=== PATIENT | female | born 1990 | race Caucasian/White ===

== ENCOUNTER 2017-02-12 10:32 | Emergency (ER) | payer BC ==
[2017-02-12 10:33] VITALS: BMI 23.3
[2017-02-12 10:59] VITALS: O2SAT 98
--- NOTE | 2017-02-12 11:02 | ED PDOC ---
HPI: General Adult Time Seen by Provider: 02/12/17 10:55 Chief Complaint (Nursing): Abdominal Pain Chief Complaint (Provider): transfer accepted by Dr. Koenig History Per: Patient, Other ([facility] chart) History/Exam Limitations: no limitations Additional Complaint(s): Patient was transferred here from [facility] to be accepted by Dr. Koenig motorcycle assembler. Working diagnosis is adnexal mass, ovarian cyst vs other gynecological pathology. CT and US were done previously. Labs, CT, US were reviewed by proposal manager writer. Dr. Koenig was paged. Patient was initially seen at [place] for abdominal pain, vomit, diarrhea. Also reports menstrual cycle for several days. Past Medical History Reviewed: Historical Data, Nursing Documentation, Vital Signs Vital Signs: Last Vital Signs Temp 98.4 F 02/12/17 13:40 Pulse 87 02/12/17 13:40 Resp 19 02/12/17 13:40 BP 102/62 02/12/17 13:40 Pulse Ox 98 02/12/17 13:40 - Family History Family History: States: No Known Family Hx - Home Medications Home Medications: Ambulatory Orders Medication Instructions Recorded Dicyclomine [Bentyl] 10 mg PO TID #15 cap 02/12/17 Ondansetron ODT [Zofran ODT] 4 mg PO Q8 PRN #12 odt 02/12/17 Sulfamethoxazole/Trimethoprim 1 tab PO BID #14 tab 02/12/17 [Bactrim DS 800 mg-160 mg] traMADol [Ultram] 50 mg PO Q6 PRN #6 tab 02/12/17 - Allergies Allergies/Adverse Reactions: Allergies Allergy/AdvReac Type Severity Reaction Status Date / Time No Known Allergies Allergy Verified 02/12/17 03:09 Review of Systems ROS Statement: Except As Marked, All Systems Reviewed And Found Negative Physical Exam - Reviewed Nursing Documentation Reviewed: Yes Vital Signs Reviewed: Yes - Physical Exam Appears: Positive for: Well, Non-toxic, No Acute Distress Head Exam: Positive for: ATRAUMATIC, NORMAL INSPECTION, NORMOCEPHALIC Skin: Positive for: Warm, Dry Cardiovascular/Chest: Positive for: Regular Rate, Rhythm. Negative for: Tachycardia Respiratory: Positive for: Normal Breath Sounds. Negative for: Wheezing, Respiratory Distress Gastrointestinal/Abdominal: Positive for: Soft, Tenderness (lower abdominal). Negative for: Guarding, Rebound Extremity: Positive for: Normal ROM Neurologic/Psych: Positive for: Alert, Oriented (x3) - ECG O2 Sat by Pulse Oximetry: 98 (RA) Pulse Ox Interpretation: Normal Medical Decision Making Medical Decision Making: From [place] Chart: 02/12/17 08:31 Patient with sono and CT results as noted - discussed with on-call physician, Dr. Medeiros, who said to discuss with MACHINE FEEDER RAW STOCK. Case discussed with Dr. Koenig, who said she will accept the patient for transfer to [place] [facility]. Patient signed consent for transfer. Dr. Watkins in the ED aware From [place] Chart: prelimininary CT abd/pel w/ Impression: There is a complex 54 x 45 mm cystic mass in the left adnexa adjacent to the dorsal margins of the right ovary. Right ovary appears polycystic. There is moderate adjacent stranding and small fluid. There is thickening of the wall of the adjacent sigmoid colon and small bowel. Uncertain if this is exophytic ovarian cyst or distinct from the ovary. Cannot exclude abscess or cystic malignancy. Correlate with status. Previously described 26 mm left ovarian cyst is suspected in series 2 image 138. From [place] Chart: preliminary US Pelvis Impression: Ovarian lesions as above. If clinically indicated, consider 6 week interval followup imaging to document resolution. [address] Koenig MARKETING PROJECT COORDINATOR who will see the patient in the ED. Patient does not ask for pain medications at this time. CT abd/pel Impression (final read by Dr. Mak Radiology): Cyst left adnexa. Otherwise no significant/ acute findings. US Pelvis impression (final read by Dr. Mak Radiology): Bilateral adnexal cysts, of complex cyst right ovary, simple cyst left ovary. Negative study for adnexal torsion. 1124 Case discussed with patient. Explained I reviewed CT and US from this morning, including preliminary and final reads. Explained finding of right polycystitic ovarian complex structure on final read. Explained finding of smaller cyst on left side. Explained CT is negative for acute findings including appendicitis. Explained that according to labs patient has UTI which is consistent with symptoms. Explained that patient was accepted by Dr. Koenig MARKETING PROJECT COORDINATOR given the preliminary findings. Explained I cannot give any more pain medications at this time. Patient is in agreement and is thankful for explanation because she was not aware. 1129: Dr. Koenig MARKETING PROJECT COORDINATOR is at bedside. [address] Koenig MARKETING PROJECT COORDINATOR who examined the patient and clears patient for discharge. 1300 MDM There is no evidence of acute emergent or any urgent surgical or gynecological condition at this time requiring admission or other consults. Patient is stable for discharge. 1300 I discussed with the patient the findings, consult, dx, and follow up. She agrees with the plan. All questions are answered. Patient and family are leaving in good spirits. Disposition - Clinical Impression Clinical Impression: Abdominal pain in female, Ovarian cyst, UTI (urinary tract infection), Vomiting and diarrhea - Patient ED Disposition Is Patient to be Admitted: No Doctor Will See Patient In The: Office Counseled Patient/Family Regarding: Studies Performed, Diagnosis, Need For Followup - Disposition Referrals: [facility] [Outside] [facility] [Outside] Disposition: Routine/Home Disposition Time: 13:22 Condition: GOOD Additional Instructions: Follow up with your plaster foreman in 2-3 days. Prescriptions: Sulfamethoxazole/Trimethoprim [Bactrim DS 800 mg-160 mg] 1 tab PO BID #14 tab Dicyclomine [Bentyl] 10 mg PO TID #15 cap traMADol [Ultram] 50 mg PO Q6 PRN #6 tab PRN Reason: Pain, Moderate (4-7) Ondansetron ODT [Zofran ODT] 4 mg PO Q8 PRN #12 odt PRN Reason: Nausea/Vomiting Instructions: Abdominal Pain (ED), Ovarian Cyst (ED), Urinary Tract Infection in Women (ED) Forms: [facility] ED School/Work Excuse Additional Comments - Additional Comments Additional Comments: Scribe Attestation: Documented by Leighton Rueda acting as a scribe for Dedra Sutton MD. Scribe Attestation: All medical record entries made by the Scribe were at my direction and personally dictated by me. I have reviewed the chart and agree that the record accurately reflects my personal performance of the history, physical exam, medical decision making, and the department course for this patient. I have also personally directed, reviewed, and agree with the discharge instructions and disposition.
[2017-02-12] MEDS ORDERED: cefTRIAXone (Rocephin) 1 gm Inj ONE (11:09)
[2017-02-12 13:42] VITALS: BP 102/62; PULSE 87; RESP 19; TEMP 98.4
--- NOTE | 2017-02-12 14:08 | CON ---
DATE: 02/12/2017 This is a 26-year-old virgin who was transferred from [place] due to abdominal pain with a last menstrual period of 02/08/2017. The patient reports that she bled until Thursday and then the bleeding stopped. Reports that she usually bleeds for 5 days and her periods are usually heavier than the recent one she had. She reports that she always has cramps and bloating as well as some diarrhea with her periods. She reports that she had diarrhea on Thursday morning , although she reports some diarrhea with her periods usually. The patient reports that she had bloating that started on Thursday, on 02/09, but it was all over her abdomen up to her sternum. She reports that she vomited on Thursday morning. The patient reports that she had some relief of her discomfort with the bowel movements, but then she would have pain again. She reports that she took Gas-X without any relief of the bloating. The patient reports that the abdominal pain is mostly in her upper abdomen. The patient denies any sick contacts. PAST MEDICAL HISTORY: Healthy. PAST SURGICAL HISTORY: None. MEDICATIONS: None. ALLERGIES: No known drug allergies. GYNECOLOGICAL HISTORY: The patient is a virgin. Menarche at 13 with regular periods. She denies any history of any STDs. The patient does not have a MANAGER OF IT. FAMILY HISTORY: Paternal grandmother with colon cancer and paternal aunt with breast cancer. SOCIAL HISTORY: The patient denies tobacco, alcohol, and illicit drug use. PHYSICAL EXAMINATION: VITAL SIGNS: Afebrile. Vital signs are stable. GENERAL: The patient appears comfortable, lying in bed. She does not appear in any acute distress. ABDOMEN: Soft and diffusely tender. There is voluntary guarding, but no involuntary guarding, no rebound. EXTREMITIES: Nontender. VAGINAL: Deferred due to the fact that the patient is a virgin. LABORATORIES: Her white blood cell count is slightly elevated at 12.3, her hemoglobin is 12.8, platelets 194. PT/INR within normal limits. Her PTT is slightly elevated at 31. Her electrolytes are normal and her liver function tests are normal. Her urine revealed large blood and small leukocyte esterase. IMAGING: CT scan of the abdomen and pelvis, the impression was cyst in the left adnexa, otherwise no significant acute findings. Specifically, there was a left adnexal mass cyst that measured 4.1 cm x 4.9 cm. The patient also underwent an abdominal ultrasound of the pelvis, which revealed the right ovary had a 3.9 cm x 5.4 cm complex cyst, not appreciated on the recent CT scan. It had normal flow. The left ovary contained a 3.4 cm x 2 cm simple cyst and that corresponded with the findings on the recent CT scan. There was no significant free fluid and it was a negative study for adnexal torsion. ASSESSMENT AND PLAN: This is a 26-year-old virgin with a recent last menstrual period of 02/08/2017 who reports that her last period was suspiciously short and reports that she has had some diarrhea and an episode of vomiting over the last couple of days. The patient may have gastroenteritis. The patient does not have an acute abdomen and I feel that the ovarian cysts found on her ultrasound are incidentally found. I recommend that patient follow up with a MANAGER OF IT to make sure that the cysts resolve. The patient was given Dr. Delores Grigsby's number. I spoke with the ER doctor who plans to discharge her home. He will probably treat her for a urinary tract infection and give her some medications related to her gastrointestinal symptoms, specifically the bloating and the epigastric pain. Jose Manuel Koenig MD cc: [id number] TT: 02/12/2017 14:07:26 Confirmation # [id number] Dictation # [id number] [id number]
== END 2017-02-12 13:45 | disposition home or self-care (01) ==
LOC: H.ER 10:32
DX: N39.0 Urinary tract infection, site not specified (principal); N83.209 Unspecified ovarian cyst, unspecified side; R11.10 Vomiting, unspecified; R19.7 Diarrhea, unspecified; R10.9 Unspecified abdominal pain